=== PATIENT | female | born 1970 | race Caucasian/White ===

== ENCOUNTER 2025-09-13 11:38 | Emergency (ER) | payer OTHER, SELFPAY ==
[2025-09-13 11:43] VITALS: BP 105/80; PULSE 103; RESP 18; TEMP 36.9; O2SAT 100
--- NOTE | 2025-09-13 11:55 | ED.URI ---
HPI - URI/Sore Throat General Chief Complaint: Upper Respiratory Infection Stated Complaint: covid positive Time Seen by Provider: 09/13/25 11:55 Source: patient, RN notes reviewed and old records reviewed Mode of arrival: ambulatory Limitations: no limitations History of Present Illness HPI Narrative: 54 year old female presents to express care with complaints of testing positive at her work for COVID and her employer requires a verified test outside of employer and she would like to be treated for COVID with antiviral medication. Patient reports that she has history of Rheumatoid arthritis/Lupus and also MS. Patient reports that she is on Humira and methotrexate for her autoimmune disease and sees Rheumatology at [facility]. Patient is on cholesterol medication and has been instructed if she takes Paxlovid she will have to hold medication due to interactions of medication. reports that she didn't take last night and is aggreeable to hold. Patient is requesting Albuterol ingaler for cough symptoms. MD elicited complaint: cough, nasal congestion, sinus pain and other (headache) Pertinent past history: immunosuppression Onset (ago): day(s) (late yesterday evening) Consistency: progressively worsening Severity: moderate Pain scale (0-10): 5 Description of mucous: clear Able to tolerate fluids by mouth: Yes Treatments prior to arrival: other (rttakes daily pain medication for pain control) Related Data Home Medications ?Medication ?Instructions ?Recorded ?Confirmed ?Last Taken ?Type adalimumab 40 mg/0.8 mL 40 mg subcut ONCE 09/13/25 Unknown History subcutaneous syringe kit (Humira) folic acid 20 mg capsule 20 mg PO DAILY 09/13/25 Unknown History methotrexate sodium 10 mg tablet 10 mg PO WEEKLY 09/13/25 Unknown History rosuvastatin .ROUTE 09/13/25 09/13/25 History Allergies Allergy/AdvReac Type Severity Reaction Status Date / Time No Known Allergies Allergy Verified 09/13/25 11:41 Review of Systems Review of Systems: CONSTITUTIONAL: reports malaise, chills, sweats, no known fever. EYES: Denies visual changes, redness, or discharge. ENT: Reports rhinorrhea, congestion, sinus pain, no otalgia and no sore throat. CARDIOVASCULAR: Denies chest pain, palpitations, or edema. RESPIRATORY: Reports cough. with some production of clear mucous? Denies dyspnea. GASTROINTESTINAL: Denies abdominal pain, nausea, vomiting, diarrhea SKIN: Denies rash or itching. MUSCULOSKELETAL: Reports myalgia. NEUROLOGIC:Reports headache. All systems reviewed & are unremarkable except as noted in HPI and below PMFSH Past Medical History Medical History (Updated 09/14/25 @ 12:35 by Oksana Torres APRN) High blood cholesterol Lupus (systemic lupus erythematosus) Rheumatoid arthritis Multiple sclerosis Surgical History Surgical History (Updated 09/14/25 @ 12:29 by Oksana Torres APRN) No history of previous surgery Social History Social History (Updated 09/14/25 @ 12:35 by Oksana Torres APRN) Smoking packs per day: 1 Smoking cigarettes per day: 20.0 Smoking status: Current every day smoker Tobacco type: cigarettes Alcohol intake: current Alcohol use details: rare social Substance use type: opiates Last use: from pain management for pain control RA/Lupus Living arrangements: with family Gender identity (if verbalized by the patient): Female Comments At time of signature, agree with nursing past medical, surgical, social and family history. There is no relevant family history pertinent to the presenting complaint Exam Narrative: GENERAL: Ill-appearing, well-nourished, and in no acute distress. HEAD: Normocephalic EYES: PERRLA, conjunctivae clear ENT: Nares clear, turbinates edematous and erythematous, clear discharge. Mucous membranes moist. TM pearly fernando with dull light reflex bilaterally; no tragal tenderness. Oropharynx erythematous without lesions. Tonsils not enlarged and without exudate, no drooling, no hoarseness, no trismus, uvula midline.post nasal drainage NECK: Supple. No lymphadenopathy CHEST: few scattered wheezes on auscultation, breath sounds equal. few wheezing, no rhonchi, rales, or stridor. No respiratory distress, speaks in full sentences cough noted dry and reportted some clear mucous noted at times. SAO2 100% on room air, denies any dyspnea. no tachypnea. HEART: Regular rate and rhythm. No murmur heard. SKIN: Warm, dry, no rash. NEURO: Alert and oriented x3. PSYCH: Normal mood and affect anxious Course Course Level of Care: Express Care Visit Vital Signs Vital signs: Vital Signs Temperature 36.9 C 09/13/25 11:43 Pulse Rate 103 H 09/13/25 11:43 Respiratory Rate 18 09/13/25 11:43 Blood Pressure 105/80 09/13/25 11:43 Pulse Oximetry 100 09/13/25 11:43 Oxygen Delivery Room Air 09/13/25 11:43 Temperature 36.9 C 09/13/25 11:43 Pulse Rate 103 H 09/13/25 11:43 Respiratory Rate 18 09/13/25 11:43 Blood Pressure 105/80 09/13/25 11:43 Pulse Oximetry 100 09/13/25 11:43 Oxygen Delivery Room Air 09/13/25 11:43 reviewed [facility] Narrative Medical decision making narrative: Patient diagnosed with COVID and requests Paxlovid medication, will treat with patient instructed she must hold Cholesterol medication due to interaction with understanding voiced. 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 Patient also prescribed Albuterol inhaler. Patient given anticipatory guidance and reviewed reasons to seek further care at ED with understanding voiced. Differential Diagnosis Differential Diagnosis: URI, cough,nasal pressure,headache. COVID positive, immunocompromised Lab Data [facility] Lab Attestation statement: I personally reviewed the patient's lab results. Lab results narrative: COVID antigen positive Labs: Lab Results 09/13/25 Range/Units 12:08 POC SARS CoV-2 Ag Positive (Negative) Critical Care Time Critical Care Time Critical Care Time: No Discharge Plan Discharge Clinical Impression: COVID-19, Acute cough Patient Disposition: Home Condition: Stable Instructions: Nirmatrelvir/Ritonavir (By mouth), Acute Cough (ED), How to Recover from COVID-19 at Home (ED) Additional Instructions: Increase fluids especially juices and water [id number]-[id number] cough and cold medicine of your choice for your symptoms Tylenol or ibuprofen for any fever pain per package directions Continue your inhaler/nebulizer as directed hold-cholesterol medication while taking Paxil and for 2 days after completion of medication heat to the face 20-30 minutes 4-6 times a day for pain Salt water gargles, throat lozenges or throat sprays as desired If your symptoms persist, change or worsen significantly before you can contact your personal physician then please, without delay, go to the emergency department for further evaluation. Follow-up with PCP in 7-10 days or sooner if needed COVID-19 DISCHARGE The following recommendations have been made by the CDC and local Health Departments, regarding COVID-19: Those individuals with mild cases of COVID-19 can generally be discontinued from isolation, 5 days AFTER the onset of symptoms AND the resolution of fever for 24hrs (without the use of fever-reducing medications) Those individuals who were asymptomatic, and tested positive, are discontinued from isolation 10 days AFTER their first positive COVID-19 test Those individuals with SEVERE to CRITICAL illness or immunocompromised diseases may require up to 20 days of home isolation or hospitalization Majority of mild to moderate cases can be treated at home, without hospitalization or prescription medications You do not need a negative test result to return to work/school, assuming the above recommendations have been met and you are not symptomatic. At this time, return to work/school notes will not be provided. Guidelines from the local Health Department, CDC, and workplace are expected to be followed. All individuals in the household need to remained quarantined for up to 14 days if asymptomatic OR 10 days after the start of symptoms. Everyone in the home DOES NOT require testing, they are presumed positive and should quarantine as directed. Treating symptoms for mild to moderate cases may include: Tylenol, Flonase/nasal spray, OTC cold/flu medications recommended from your provider or any necessary prescription medications provided at your visit or from your PCP IF YOU TESTED NEGATIVE If you are symptomatic with reason to believe you have COVID-19, there is a high possibility your rapid test may not have detected the virus. Rapid testing is dependent on timing and viral load and may have a false-negative reading You should follow appropriate guidelines regarding quarantine, hand washing, mask wearing, and social distancing You may be sent for PCR testing as an outpatient to the [facility] site Common Adult Symptoms: Fever/chills Cough Shortness of breath Fatigue, muscle aches Headache Loss of taste/smell Sore throat, congestion, runny nose GI symptoms (nausea, vomiting, diarrhea) Common Pediatric Symptoms Cough Fever GI symptoms (diarrhea, upset stomach, nausea, vomiting) Symptoms may differ in severity however, most cases do not require hospitalization. WHEN TO SEEK ER EVALUATION/TREATMENT Severe/persistent shortness of breath or difficulty breathing Elevated, persistent fevers without resolution with fever-reducing medications Chest pain Extreme fatigue/lethargy Complications of pre-existing disease Patient Language: Hungarian Prescriptions: New albuterol sulfate [Ventolin HFA] 90 mcg/actuation HFA aerosol inhaler 2 puff inhalation QID PRN (Reason: shortness of breath or wheezing) Qty: 8.5 0RF Rx Instructions: whatever is covered with insurance Paxlovid 300 mg (150 mg x 2)-100 mg tablets,dose pack See Rx Instructions .ROUTE .COMPLEX Qty: 30 0RF Rx Instructions: take TWO 150 mg tablets of nirmatrelvir with ONE 100 mg tablet of ritonavir twice daily for 5 days (will hold cholesterol medication) No Action Humira 40 mg/0.8 mL syringe kit 40 mg subcut ONCE methotrexate sodium 10 mg tablet 10 mg PO WEEKLY folic acid 20 mg capsule 20 mg PO DAILY rosuvastatin [Crestor] .ROUTE Follow-up/Referrals: PHYSICIAN NOT ON STAFF,NONSTAFF [Primary Care Provider] Stand Alone Forms: Work/School Release IP Time of Disposition: 12:22 Quality [place] Coma Scale Eyes: Open Verbal: Oriented and Alert Motor: Follows Commands [place] Coma Total Score: 15
[2025-09-13 12:10] LABS: EDCOVIDSCREEN Positive (Negative)
--- OUTSIDE RECORDS SUMMARY | 2025-09-13 13:10 | XMS_ITS | Clinical Summary ---
Author Organization [facility] Address [address] [place] [phone] Care Team Providers Care Biodiesel Process Control Technician Name Role Phone Luisvicenta Edward Julio DO Primary Care Provider Allergies Active Allergy Reactions Criticality Noted Date Comments Aspirin Hives Medium 03/07/2022 Levofloxacin Anaphylaxis,Other (S ee comments) High 03/07/2022 Shock Shock Medications albuterol HFA (PROVENTIL HFA,VENTOLIN HFA,PROAIR HFA) 90 mcg/actuation inhaler Inhale 2 puffs 4 (four) times a day as needed Active cloNIDine (CATAPRES) 0.2 mg tablet Take 1 tablet (0.2 mg total) by mouth nightly Active folic acid (FOLVITE) 1 mg tablet Take 3 tablets (3 mg total) by mouth daily 4 Active furosemide (LASIX) 20 mg tablet Take 1 tablet (20 mg total) by mouth daily Active methotrexate, PF, 25 mg/mL preservative free injection Inject 1 mL (25 mg total) under the skin once a week 4 Active nabumetone (RELAFEN) 750 mg tablet Take 1 tablet (750 mg total) by mouth 2 (two) times a day as needed 4 Active omeprazole (PriLOSEC) 20 mg capsule Take 1 capsule (20 mg total) by mouth daily Active oxyCODONE-acetami nophen (PERCOCET) 10-325 mg per tablet Take 1 tablet by mouth every 4 (four) hours as needed 4 Active pregabalin (LYRICA) 75 mg capsule Take 1 capsule (75 mg total) by mouth daily 4 Active rosuvastatin (CRESTOR) 40 mg tablet Take 1 tablet (40 mg total) by mouth daily Active tiotropium bromide (SPIRIVA RESPIMAT) 2.5 mcg/actuation inhaler Inhale 2 puffs daily Active tiZANidine (ZANAFLEX) 2 mg tablet Take 1 tablet (2 mg total) by mouth daily Active budesonide-formot Wendy (SYMBICORT) 160-4.5 mcg/actuation inhaler Inhale 2 puffs 2 (two) times a day Rinse mouth with water after use. Do not swallow. 1 each 4 Active fluticasone propionate (FLONASE) 50 mcg/actuation nasal spray Administer 2 sprays into each nostril daily 16 g 4 Active Active Problems No known active problems Surgical History Surgery Date Site/Laterality Comments HYSTERECTOMY W/ BILATERAL SALPINGOOPHORECTOMY 10/12/2008 - 10/11/2009 APPENDECTOMY 10/12/1988 - 10/11/1989 BRONCHOSCOPY Medical History Medical History Date Comments Lupus (systemic lupus erythematosus) (HCC) Rheumatoid arthritis (HCC) Family History Medical History Relation Name Comments Colon cancer Father Colon cancer Mother Relation Name Status Comments Father Mother Social History Tobacco Use Types Packs/Day Years Used Date Smoking Tobacco: Every Day Cigarettes 1 37.9 Started: 1987 Tobacco Cessation:Ready to Q uit: Not Asked; Counseling Given: Not Answered Comments Unknown Sex and Gender Information Value Date Recorded Sex Assigned at Not on file Legal Sex Female 10:42 AM CDT Gender Identity Not on file Sexual Orientation Not on file Last Filed Vital Signs Vital Sign Reading Time Taken Comments Blood Pressure 129/80 08/23/2024 2:08 PM AUCTION BLOCK CLERK Pulse 86 08/23/2024 2:08 PM AUCTION BLOCK CLERK Temperature 36.7 C (98.1 F) 08/23/2024 2:08 PM AUCTION BLOCK CLERK Respiratory Rate - - Oxygen Saturation 96% 08/23/2024 2:08 PM AUCTION BLOCK CLERK Inhaled Oxygen Concentration - - Weight 111.6 kg (246 lb) 11/23/2024 3:12 PM AUCTION BLOCK CLERK Height 157.5 cm (5' 2) 11/23/2024 3:12 PM AUCTION BLOCK CLERK Body Mass Index 44.99 11/23/2024 3:12 PM AUCTION BLOCK CLERK Plan of Treatment Health Maintenance Due Date Last Done Comments Breast Cancer Screening-Mammogram 1972 Cervical Cancer Screening 1972 Colon Cancer Screening-Colonoscopy 1972 Depression Screening 1972 Hepatitis C Screening 1972 DTaP/Tdap/Td Vaccine (1 - Tdap) 1983 Hepatitis B Screening 1990 Regular Well Visit/Exam 18-64 1990 Pneumococcal vaccine <65 (1 of 2 - PCV) 1991 Zoster Vaccine (1 of 2) 1991 Covid-19 Vaccine (3 - Pfizer risk series) 09/10/2021 08/13/2021, 07/19/2021 Influenza Vaccine (#1) 2025 07/22/2017 Insurance [employer] ACCESS Member Subscriber Plan / Payer (Ef fective 2023-Present) Name:Flor Kendall Member ID:[id number] Relation to Subscriber:Self Name:Flor Kendall Subscriber ID:[id number] Payer ID:[id number] (NAIC) Type:JAGDISH NAJERA Address: [facility] [id number] [place] [id number] Care Teams Biodiesel Process Control Technician Relationship Specialty Start Date End Date Edward Miles DO [address] [place] [address] PCP - General 02/19/17
--- OUTSIDE RECORDS SUMMARY | 2025-09-13 13:13 | XMS_ITS | Encounter Summary ---
Author Organization [facility] Address [address] [place] [address] Care Team Providers Care Felt Finisher Name Role Phone Marci Kam PA-C Primary Care Provider [phone] Reason for Visit * Reason Comments Refill Request Encounter Details Date Type Department Care Team ([facility] st Contact Info) Description 08/03/2025 Refill [facility] - Rheumatology [address] [place] [phone] Kemi Salazar MD [address] [place] [phone] Refill Request Social History Tobacco Use Types Packs/Day Years Used Date Smoking Tobacco: Every Day Cigarettes Smokeless Tobacco: Never Alcohol Use Standard Drinks/Week Comments Not Currently 0 (1 standard drink = 0.6 oz pur e alcohol) PHQ-2 Answer Date Recorded Patient Health Questionnaire-2 Score 0 04/28/2025 Comments No Sex and Gender Information Value Date Recorded Sex Assigned at Not on file Legal Sex Female 2:39 PM CDT Gender Identity Not on file Sexual Orientation Not on file documented as of this encounter Miscellaneous Notes * Telephone Encounter - Alana Harris - 08/21/2025 9:29 AM CST Patient labs have been resulted for Methotrexate refill. 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 * Telephone Encounter - Alana Harris - 08/03/2025 9:47 AM CDT NON-BIOLOGIC REFILL REQUEST Last OV: 04/28/2025 Next Appointment: 10/20/2025 Last Fill: 07/04/2025 Recent Labs Component Name 03/28/25 1517 12/06/24 1414 06/03/24 1523 WBC 9.4 9.3 9.1 HGB 13.0 13.0 10.9* PLTCOUNT 242 255 288 MCV 97 92 91.4 Recent Labs Component Name 03/28/25 1516 12/06/24 1414 06/03/24 1523 CREATININE 0.66 0.67 0.80 BUN 9 9 10 SODIUM 140 142 141 POTASSIUM 4.2 4.1 3.9 Recent Labs Component Name 03/28/25 1516 12/06/24 1414 06/03/24 1523 EGFR 105 105 89* Recent Labs Component Name 03/28/25 1516 12/06/24 1414 06/03/24 1523 AST 19 20 15 ALT 18 17 17 ALKPHOS 65 69 61 TBIL 0.3 0.2 0.1* Last ESR: Recent Labs Component Name 04/01/24 1426 SEDRATE 30 Last 3 CRP: Recent Labs Component Name 04/01/24 1426 CRP 13* documented in this encounter Plan of Treatment Upcoming Encounters Date Type Department Care Team (Late st Contact Info) Description 10/20/2025 3:00 PM MECH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 Office Visit [facility] - Rheumatology [address] [place] [address] Kemi Salazar MD [address] [place] [phone] documented as of this encounter Visit Diagnoses Diagnosis Inflammatory arthritis Unspecified inflammatory polyarthropathy documented in this encounter Care Teams Felt Finisher Relationship Specialty Start Date End Date Marci Kam PA-C [address] [place] [phone] PCP - General Physician Cook Chief 04/01/24 documented as of this encounter
--- OUTSIDE RECORDS SUMMARY | 2025-09-13 13:13 | XMS_ITS | Encounter Summary ---
Author Organization [facility] Address [address] [place] [address] Care Team Providers Care Gate Agent Name Role Phone Marci Kam PA-C Primary Care Provider [phone] Reason for Visit * Reason Onset Date Comments MEDICATION REFILL 08/08/2025 Encounter Details Date Type Department Care Team (Late st Contact Info) Description 08/08/2025 Refill [facility] Medical [facility] - Rheumatology [address] [place] [address] Kemi Salazar MD [address] [place] [phone] MEDICATION REFILL Social History Tobacco Use Types Packs/Day Years [...] encounter Miscellaneous Notes * Telephone Encounter - Darren Holguin RN - 08/08/2025 9:36 AM CDT Chart, allergies, most recent medication monitoring labs and last office note from 04/28/2025 reviewed and medication denied due to sufficient refills on file from the 07/18/2025 script sent. * Telephone Encounter - Alana Harrsi S - 08/08/2025 9:25 AM CDT BIOLOGIC REFILL REQUEST Last OV: 04/28/2025 Next Appointment: 10/20/2025 Last Fill: 07/18/2025 No results for input(s): CHOL, TRIG, HDL, VLDL, LDLCALC in the last 61368 hours. Recent Labs Component Name 08/07/25 1319 03/28/25 1517 12/06/24 1414 WBC 9.2 9.4 9.3 HGB 12.7 13.0 13.0 PLTCOUNT 258 242 255 MCV 97 97 92 Recent Labs Component Name 08/07/25 1319 03/28/25 1516 12/06/24 1414 CREATININE 0.70 0.66 0.67 BUN 10 9 9 SODIUM 141 140 142 POTASSIUM 4.5 4.2 4.1 Recent Labs Component Name 08/07/25 1319 03/28/25 1516 12/06/24 1414 EGFR 104 105 105 Recent Labs Component Name 08/07/25 1319 03/28/25 1516 12/06/24 1414 AST 22 19 20 ALT 21 18 17 ALKPHOS 65 65 69 TBIL 0.2 0.3 0.2 Last ESR: Recent Labs Component Name 08/07/25 1319 04/01/24 1426 SEDRATE 23 30 Last 3 CRP: Recent Labs Component Name 04/01/24 1426 CRP 13* Recent Labs Component Name 08/07/25 1320 04/01/24 1427 HCV Non Reactive Non Reactive HBSAG Negative Negative Recent Labs Component Name 04/01/24 1425 QUANTTBGPLUS Negative No results for input(s): QNTTBGOLD in the last 02805 hours. Hepatitis B surface Ag: negative Date: 04/01/2024 Hepatitis B surface Ab: negative Date: 04/01/2024 Hepatitis B Core ab: negative Date: 04/01/2024 Hepatitis C ab: Non Reactive Date: 04/01/2024 Last Quantiferon TB-GOLD: 04/01/2024 Negative Chest X-Ray: NA Immunization: Immunization History Administered Date(s) Administered CovSmart GPS Backpack Pfizer primary monovalent 12+ yr 0.3mL Purple cap 07/19/2021, 08/13/2021 FLU VACCINE TRI IIV3 SPLIT IM (FLUVIRIN) 07/22/2017 documented in this encounter Plan of Treatment Upcoming Encounters Date Type Department Care Team (Late st Contact Info) Description 10/20/2025 3:00 PM ASSESSOR Office Visit [facility] - Rheumatology [address] [place] [address] Kemi Salazar MD [address] [place] [phone] documented as of this encounter Visit Diagnoses Not on filedocumented in this encounter Care Teams Gate Agent Relationship Specialty Start Date End Date Marci Kam PA-C [address] [place] [phone] PCP - General Physician Network Support Administrator 04/01/24 documented as of this encounter
--- OUTSIDE RECORDS SUMMARY | 2025-09-13 13:13 | XMS_ITS | Encounter Summary ---
Author Organization [facility] Address [address] [place] [address] Care Team Providers Care Die Setter Name Role Phone Marci Kam PA-C Primary Care Provider [phone] Encounter Details Date Type Department Care Team (Late Contact Info) Description 09/13/2025 Orders Only [facility] - Rheumatology [address] [place] [address] Kemi Salazar MD [address] [place], [place] [address] [phone] Rheumatoid arthritis involving multiple sites with positive rheumatoid factor (HCC) Social History Tobacco Use Types Packs/Day Years [...] on file documented as of this encounter Plan of Treatment Upcoming Encounters Date Type Department Care Team (Late st Contact Info) Description 10/20/2025 3:00 PM IMMIGRATION LAW SPECIALIST Office Visit [facility] - Rheumatology [address] [place] [phone] Kemi Salazar MD [address] [place] [phone] documented as of this encounter Visit Diagnoses Diagnosis Rheumatoid arthritis involving multiple sites with positive rheumatoid factor (HCC) documented in this encounter Care Teams Die Setter Relationship Specialty Start Date End Date Marci Kam PA-C [address] [place] [phone] PCP - General Physician Pharmacy Intake Technician 04/01/24 documented as of this encounter
--- OUTSIDE RECORDS SUMMARY | 2025-09-13 13:13 | XMS_ITS | Clinical Summary ---
Author Organization [facility] Address [address] [place] [address] Care Team Providers Care Circle Edger Name Role Phone Marci Kam PA-C Primary Care Provider [phone] Source Comments [facility],non-owned Affiliates and Associated Physician Practices is amultiple site organization consisting of ambulatory clinics and hospital sitesin [place], [place], [place] and [place]. This disclosure is being madepursuant to the Care Everywhere program and may not contain all information available regarding this patient. Last updated 18.[facility] Allergies Active Allergy Reactions Criticality Noted Date Comments Aspirin Unknown 03/07/2022 Levofloxacin Other 03/07/2022 Shock Ranitidine Anaphylaxis High 04/01/2024 Medications * Be aware that medications may not be up to date on this document. Alwaysverify current medications with the patient. tiZANidine (Zanaflex) 2 MG tablet Take 1 (one) tablet by mouth Active tiotropium (Spiriva Respimat) 2.5 MCG/ACT inhaler Inhale 2 (two) puffs by mouth once daily Active theophylline CR 24hr (Uniphyl) 400 MG tablet 03/30/20 24 Active rosuvastatin (Crestor) 40 MG tablet Take 1 (one) tablet by mouth once daily Active pregabalin (Lyrica) 100 MG capsule 06/19/20 23 Active oxyCODONE-patrica taminophen (Percocet) 10-325 MG tablet 03/24/20 24 Active omeprazole (PriLOSEC) 20 MG capsule Take 1 (one) capsule by mouth once daily Active nabumetone (Relafen) 750 MG tablet 03/30/20 24 Active lisinopril (Prinivil; Zestril) 20 MG tablet 03/24/20 24 Active furosemide (Lasix) 20 MG tablet Take 1 (one) tablet by mouth once daily Active cetirizine (ZyrTEC) 10 MG tablet Take 1 (one) tablet by mouth Active albuterol HFA (Proventil; Ventolin; Proair) 108 (90 Base) MCG/ACT inhaler Inhale 2 (two) puffs by mouth 4 times daily as needed Active insulin syringe-needl e (Bd Ultrafine) 29G X 1/2 1 ML syringeIndica tions:Inflamm atory arthritis Use 1 syringe to inject MTX subcutaneously every 7 days. (100 syringes/box). 15 Each 07/15/20 24 Active BD Syringe Slip Tip 25G X 5/8 1 ML MISC USE 1 SYRINGE TO INJECT METHOTREXATE EVERY 7 DAYS 15 Each 11 03/24/20 25 Active fluticasone propionate (Flonase) 50 MCG/ACT nasal spray 04/12/20 25 Active phentermine 15 MG capsule 04/21/20 25 Active adalimumab (Humira) 40 MG/0.4ML injection Inject 0.4 mL subcutaneously every 7 days (once a week) 1.6 mL 5 07/18/20 25 Active methylPREDNIS olone (Medrol Dosepak) 4 MG tablet Take by mouth as directed Take as directed by mouth per package instructions. 21 tablet 07/18/20 25 Active Methotrexate Sodium (methotrexate , PF,) 50 MG/2ML injectionIndi cations:Infla mmatory arthritis Inject 1 mL subcutaneously every 7 days (once a week) (DISCARD VIAL AFTER EACH USE) 8 mL 2 08/08/20 25 Active folic acid (Folvite) 1 MG tablet TAKE 3 (THREE) TABLETS BY MOUTH ONCE DAILY 270 tablet 1 08/29/20 25 Active folic acid (Folvite) 1 MG tablet TAKE 3 (THREE) TABLETS BY MOUTH ONCE DAILY 270 tablet 1 03/20/20 25 2024 Discontinued Encounters Date Type Department Care Team Description 09/13/2025 Orders Only [facility] - Rheumatology [address] [place] [address] Kemi Salazar MD Rheumatoid arthritis involving multiple sites with positive rheumatoid factor (HCC) 08/29/2025 Refill [facility] Rheumatology [address] [place] [address] Kemi Salazar MD Refill Request 08/09/2025 Results Follow-Up [address] [address] Kemi Salazar MD 08/08/[address] [address] Kemi Salazar MD MEDICATION REFILL 08/08/[address] [address] Kemi Salazar MD MEDICATION REFILL 08/03/[address] [address] Kemi Salazar MD Refill Request 07/28/[address] [address] Kemi Salazar MD Refill Request 07/19/[address] [phone] Kemi Salazar MD Patient Assistance Program; Medication Prior Auth Request 07/18/[address] [phone] Kemi Salazar MD MEDICATION REFILL 07/04/[address] [phone] Kemi Salazar MD Refill Request from Last 3 Months Immunizations Immunization Administration Dates Next Due CovCoub primary monoval ent 12+ yr 0.3mL Purple cap 08/13/2021,07/19/2021 FLU VACCINE TRI IIV3 SPLIT IM (FLUVIRIN) 017 Family History Medical History Relation Name Comments CVA Father Cancer - Colon Father Cancer - Liver Father Diabetes - Type 2 Father Hypertension Father Cancer - Colon Mother Relation Name Status Comments Father Mother Social History Tobacco Use Types Packs/Day Years Used Date Smoking Tobacco: Every Day Cigarettes Smokeless Tobacco: Never Tobacco Cessation:Ready to Q uit: Not Asked; Counseling Given: Not Answered Alcohol Use Standard Drinks/Week Comments Not Currently [...] Sign Reading Time Taken Comments Blood Pressure 124/79 04/28/2025 1:53 PM CDT Pulse 93 04/28/2025 1:53 PM CDT Temperature - - Respiratory Rate 16 04/28/2025 1:53 PM CDT Oxygen Saturation 100% 04/28/2025 1:53 PM CDT Inhaled Oxygen Concentration - - Weight 84.1 kg (185 lb 6.4 oz) 04/28/2025 1:53 P M CDT Height 157.5 cm (5' 2) 12/06/2024 1:12 PM 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 Body Mass Index 33.91 12/06/2024 1:12 PM CNC OPERATOR MACHINIST Plan of Treatment Upcoming Encounters Date Type Department Care Team (Late st Contact Info) Description 10/20/2025 3:00 PM CNC OPERATOR MACHINIST Office Visit [facility] - Rheumatology [address] [place] [phone] Kemi Salazar MD [address] [place] [phone] Health Maintenance Due Date Last Done Comments COLOGUARD (AGES 45-75) - COLON CA SCREENING 1972 COLON MONITORING 1972 COLONOSCOPY - COLON CA SCREENING 1972 CT COLONOGRAPHY - COLON CA SCREENING 1972 Colorectal Cancer Screening 1972 FIT - COLON CA SCREENING 1972 FLEX SIG - COLON CA SCREENING 1972 MAMMOGRAM 1972 HIV SCREENING 1987 DTAP/TDAP/TD VACCINES (1 - Tdap) 1991 HEPATITIS B VACCINE (1 of 3 - 19+ 3-dose series) 1991 PNEUMOCOCCAL VACCINE 50+ (1 of 2 - PCV) 1991 Cervical Cancer Screening 1993 PAP SMEAR 1993 PAP with HPV 2002 COVID-19 VACCINE (3 - Pfizer risk series) 09/10/2021 08/13/2021, 07/19/2021 ZOSTER VACCINE (1 of 2) 2022 INFLUENZA VACCINE (#1) 2025 07/22/2017 SCREENING FOR DIABETES 08/07/2028 , 03/28/2025, 12/06/2024, Additional history exists DEPRESSION SCREENING Completed 04/28/2025, 07/15/20 24 HEPATITIS C SCREENING Completed 08/07/2025, 024 HIB VACCINE Aged Out No longer eligi ble based on patient's age to complete this topic HPV VACCINE Aged Out No longer eligi ble based on patient's age to complete this topic MENINGOCOCCAL (Group B) VACCINE SHARED DECISION-MAKING Aged Out No longer eligible based on patient's age to complete this topic MENINGOCOCCAL GROUPS A/C/Y/W VACCINE Aged Out No longer eligible based on patient's age to complete this topic Procedures Procedure Name Priority Date/Time Associated Diagnosis Comments HEPATITIS SCREEN ACUTE ([facility]) Routine 08/07/2025 1:20 PM CDT Inflammatory arthritis C-REACTIVE PROTEIN Routine 08/07/2025 1: 19 PM CDT Inflammatory arthritis ERYTHROCYTE SEDIMENTATION RATE Routine 08/07/2025 1:19 PM CDT Inflammatory arthritis COMPREHENSIVE METABOLIC PANEL Routine 08/07/2025 1:19 PM CDT Inflammatory arthritis CBC W AUTO DIFFERENTIAL Routine 08/07/2025 1:19 PM CDT Inflammatory arthritis from Last 3 Months Results * HEPATITIS SCREEN ACUTE ([facility]) (08/07/2025 1:20 PM CDT) Hepatitis A Virus Antibody IgM Negative Negative [facility] ACCOUNT BILL Comment: A negative anti-HAV IgM result suggests no recent or current HAV infection. Hepatitis B Virus Surface Antigen Negative Negative [facility] ACCOUNT BILL Hepatitis B Core Virus Antibody IgM Negative Negative [facility] ACCOUNT BILL Hepatitis C Antibody Non Reactive Non Reactive [facility] ACCOUNT BILL Comment: Performed at: - [facility] [address] [id number] Skeet Operator: Mike Matthew PhD, Phone: [phone] Interpretation Comment [facility] ACCOUNT BILL Comment: Not infected with HCV unless early or acute infection is suspected (which may be delayed in an immunocompromised individual), or other evidence exists to indicate HCV infection. Blood BLOOD SPECIMEN / Unknown 08/07/2025 1:20 PM CDT 08/07/2025 Narrative [facility] ACCOUNT BILL - 08/08/2025 7:10 AM CDT Performed at: - [facility] [id number] Skeet Operator: Mike Matthew PhD, Phone: [phone] Kemi Salazar MD LAB - CHEMISTRY ORDERABLES Final Result Performing Organization Address City/[facility] Co de Phone Number [facility] ACCOUNT BILL [address] [place] [address] * C-REACTIVE PROTEIN (08/07/2025 1:19 PM CDT) [facility] C-Reactive Protein 2 0 - 10 mg/L [facility] ACCOUNT BILL Blood BLOOD SPECIMEN / Unknown 08/07/2025 1:19 PM CDT 08/07/2025 Narrative [facility] ACCOUNT BILL - 08/08/2025 11:11 AM CDT Performed at: - [facility] [address] [id number] Skeet Operator: Mike Matthew PhD, Phone: [phone] Kemi Salazar MD LAB - CHEMISTRY ORDERABLES Final Result Performing Organization Address City/[facility] Co de Phone Number [facility] ACCOUNT BILL [address] [place] [address] * ERYTHROCYTE SEDIMENTATION RATE (08/07/2025 1:19 PM CDT) Erythrocyte Sedimentation Rate Westergren 23 0 - 40 mm/hr [facility] ACCOUNT BILL Blood BLOOD SPECIMEN / Unknown 08/07/2025 1:19 PM CDT 08/07/2025 Narrative [facility] ACCOUNT BILL - 08/08/2025 7:10 AM CDT Performed at: 01 - [facility] [id number] Skeet Operator: Mike Matthew PhD, Phone: [phone] Kemi Salazar MD LAB - HEMATOLOGY ORDERABLES Darcie l Result [facility] ACCOUNT BILL [address] [place] [address] * (ABNORMAL) CBC WITH DIFFERENTIAL (08/07/2025 1:19 PM CDT) Pathologist [facility] [place] WBC 9.2 3.4 - 10.8 x10E3/uL [facility] ACCOUNT BILL RBC 3.97 3.77 - 5.28 x10E6/uL [facility] ACCOUNT BILL Hemoglobin 12.7 11.1 - 15.9 g/dL [facility] ACCOUNT BILL Hematocrit 38.5 34.0 - 46.6 % [facility] ACCOUNT BILL MCV 97 79 - 97 fL [facility] ACCOUNT BILL MCH 32.0 26.6 - 33.0 pg [facility] ACCOUNT BILL MCHC 33.0 31.5 - 35.7 g/dL [facility] ACCOUNT BILL RDW 14.1 11.7 - 15.4 % [facility] ACCOUNT BILL Platelet Count 258 150 - 450 x10E3/uL [facility] ACCOUNT BILL Granulocytes % 41 Not Estab. % [facility] ACCOUNT BILL Lymphocytes % 51 Not Estab. % [facility] ACCOUNT BILL Monocytes % 6 Not Estab. % [facility] ACCOUNT BILL Eosinophils % 2 Not Estab. % [facility] ACCOUNT BILL Basophils % 0 Not Estab. % [facility] ACCOUNT BILL Granulocytes Absolute 3.8 1.4 - 7.0 x10E3/uL [facility] ACCOUNT BILL Lymphocytes Absolute 4.7(H) 0.7 - 3.1 x10E3/uL [facility] ACCOUNT BILL Monocytes Absolute 0.5 0.1 - 0.9 x10E3/uL [facility] ACCOUNT BILL Eosinophils Absolute 0.2 0.0 - 0.4 x10E3/uL [facility] ACCOUNT BILL Basophils Absolute 0.0 0.0 - 0.2 x10E3/uL [facility] ACCOUNT BILL Immature Granulocytes 0 Not Estab. % [facility] ACCOUNT BILL Immature Granulocytes Absolute 0.0 0.0 - 0.1 x10E3/uL [facility] ACCOUNT BILL Blood BLOOD SPECIMEN / Unknown 08/07/2025 1:19 PM CDT 08/07/2025 Narrative [facility] ACCOUNT BILL - 08/08/2025 7:10 AM CDT Performed at: 01 - [facility] [id number] Skeet Operator: Mike Matthew PhD, Phone: [phone] us Kemi Salazar MD LAB - HEMATOLOGY ORDERABLES Darcie l Result [facility] ACCOUNT BILL [address] [place] [address] * COMPREHENSIVE METABOLIC PANEL (08/07/2025 1:19 PM CDT) Pathologist [facility] [place] Glucose 81 70 - 99 mg/dL [facility] ACCOUNT BILL BUN 10 6 - 24 mg/dL [facility] ACCOUNT BILL Creatinine 0.70 0.57 - 1.00 mg/dL [facility] ACCOUNT BILL eGFR by CKD-EPI 104 >59 mL/min/1.7 3 [facility] ACCOUNT BILL BUN/Creatinine Ratio 14 9 - 23 [facility] ACCOUNT BILL Sodium 141 134 - 144 mmol/L [facility] ACCOUNT BILL Potassium 4.5 3.5 - 5.2 mmol/L [facility] ACCOUNT BILL Chloride 102 96 - 106 mmol/L [facility] ACCOUNT BILL CO2 25 20 - 29 mmol/L [facility] ACCOUNT BILL Calcium 10.1 8.7 - 10.2 mg/dL [facility] ACCOUNT BILL Protein Total 6.8 6.0 - 8.5 g/dL [facility] ACCOUNT BILL Albumin 4.7 3.8 - 4.9 g/dL [facility] ACCOUNT BILL Globulin Total 2.1 1.5 - 4.5 g/dL [facility] ACCOUNT BILL Bilirubin Total 0.2 0.0 - 1.2 mg/dL [facility] ACCOUNT BILL Alkaline Phosphatase 65 49 - 135 IU/L [facility] ACCOUNT BILL AST 22 0 - 40 IU/L [facility] ACCOUNT BILL ALT 21 0 - 32 IU/L [facility] ACCOUNT BILL Blood BLOOD SPECIMEN / Unknown 08/07/2025 1:19 PM CDT 08/07/2025 Narrative [facility] ACCOUNT BILL - 08/08/2025 10:10 AM CDT Performed at: 01 - [facility] [address] [id number] Skeet Operator: Mike Matthew PhD, Phone: [phone] us Kemi Salazar MD LAB - CHEMISTRY ORDERABLES Final Result [facility] ACCOUNT BILL [address] [place] [address] from Last 3 Months Care Teams Circle Edger Relationship Specialty Start Date End Date Marci Kam PA-C [address] [place] [phone] PCP - General Physician Rural Health Consultant 04/01/24
--- OUTSIDE RECORDS SUMMARY | 2025-09-13 13:13 | XMS_ITS | Encounter Summary ---
Author Organization [facility] Address [address] [place] [address] Care Team Providers Care Waterworks Pump Station Operator Name Role Phone Marci Kam PA-C Primary Care Provider [phone] Reason for Visit * Reason Onset Date Comments MEDICATION REFILL 08/08/2025 Encounter Details Date Type Department Care Team (Late st Contact Info) Description 08/08/[address] [facility] - Rheumatology [address] [place] [address] Kemi Salazar MD [address] [place] [phone] MEDICATION REFILL Social History Tobacco Use Types [...] Encounter - Darren Holguin RN - 08/08/2025 9:38 AM CDT Chart, allergies, most recent medication monitoring labs and last office note from 04/28/2025 reviewed and medication refilled as indicated previously by Dr. Salazar in the last OV note. 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 - Rheumatology [address] [place] [address] Kemi Salazar MD [address] [place] [phone] documented as of this encounter Visit Diagnoses Diagnosis Inflammatory arthritis Unspecified inflammatory polyarthropathy documented in this encounter Care Teams Waterworks Pump Station Operator Relationship Specialty Start Date End Date Marci Kam PA-C [address] [place] [phone] PCP - General Physician Octave Board Racker 04/01/24 documented as of this encounter
== END 2025-09-13 12:39 | disposition home or self-care (01) ==
PROVIDERS: Emergency Provider Registered Nurse
DX: U07.1 COVID-19 (principal); R05.1 Acute cough; F17.210 Nicotine dependence, cigarettes, uncomplicated; G35.D Multiple sclerosis, unspecified; M06.9 Rheumatoid arthritis, unspecified; M32.9 Systemic lupus erythematosus, unspecified; E78.00 Pure hypercholesterolemia, unspecified
CPT/HCPCS: 87426; 99203; G0463